=== PATIENT | male | born 1995 | race African-American/Black ===

== ENCOUNTER 2025-03-25 22:06 | Emergency (ER) | payer SELFPAY ==
[2025-03-25 22:07] VITALS: BMI 35.2
[2025-03-25 23:28] VITALS: BP 150/91; PULSE 83; RESP 17; TEMP 37.1; O2SAT 97
--- NOTE | 2025-03-25 23:42 | EDNOTE_ITS ---
ED Male Genitalurinary RME/HPI General Chief complaint: Urogenital-Male Stated complaint: DIFFICULTY URINATING Time Seen by Provider: 03/25/25 23:35 Arrival date/time: 03/25/25 22:06 29M with no significant PMH presents to ED with several days of dysuria and penile discharge. Patient took 3 days of a friend's Keflex, which helped, but symptoms returned after he stopped taking them. Limitations: no limitations Related Data Previous Rx's ?Medication ?Instructions ?Recorded doxycycline hyclate 100 mg tablet 100 mg PO BID 7 days #14 tabs 03/26/25 Allergies Allergy/AdvReac Type Severity Reaction Status Date / Time No Known Allergies Allergy Verified 03/25/25 22:09 Review of Systems Review of Systems Systems Reviewed: All systems reviewed, normal except as documented Genitourinary Genitourinary: Reports as per HPI, Reports dysuria and Reports penile discharge Past Medical History Social History SMOKING STATUS: Current some day smoker ED Exam General Limitations: Present no limitations General appearance: Present alert and in no apparent distress Head Head exam: Present atraumatic Neck Neck exam: Present normal inspection, full ROM and trachea midline Chest Chest inspection: Present normal inspection and symmetric chest wall rise Neurological Exam Neurological exam: Present alert and oriented X3 Psychiatric Psychiatric exam: Present normal affect and normal mood Skin Skin exam: Present warm, dry, intact and normal color Course Quality Measures none Orders Category Date Time Status Chlamydia/GC/TV - PCR Stat Lab 03/25/25 Received Drug Screen,Urine Stat Lab 03/26/25 00:06 Completed Urinalysis, C/S if Indicated Stat Lab 03/26/25 00:06 Completed cefTRIAXone [Rocephin] 1,000 mg Med 03/25/25 23:36 Discontinued Lidocaine 1% 20 ml [Xylocaine 1% 20 ML] 2.1 ml IM X1 Vital Signs Vital signs: Vital Signs Temperature 98.8 F 03/25/25 23:28 Pulse Rate 83 03/25/25 23:28 Respiratory Rate 17 03/25/25 23:28 Blood Pressure 150/91 H 03/25/25 23:28 Pulse Oximetry (%) 97 03/25/25 23:28 Oxygen Delivery Method Room Air 03/25/25 23:28 O2 at 97% on RA and WNLs Urogenital - Male MDM Narrative MDM Narrative:: 29M with no significant PMH presents to ED with several days of dysuria and penile discharge. Patient took 3 days of a friend's Keflex, which helped, but symptoms returned after he stopped taking them. Physical exam reveals well-appearing male. Patient is afebrile, calm, and alert. GC pending at time of DC. Patient would like to be treated empirically. UA unremarkable. Tox screen neg. Patient data External records reviewed:: None Clinical information provided by:: patient Social determinants that could affect healthcare access:: none Patient has the following chronic illnesses:: none How is presenting disease/condition affected by chronic disease/condition?: no chronic disease Evaluation data The following diagnostics were reviewed and interpreted by me:: lab results Lab and/or radiology exams considered but not ordered:: ordered Interpretation Summary: above Medications / Prescriptions Medications or Prescriptions considered but not ordered:: ordered Medication administrations:: Medication Administration History Discontinued Medications Ceftriaxone Sodium 1,000 mg/ (Lidocaine HCl 2.1 ml) 0 mg IM X1 ONE Stop: 03/25/25 23:37 Last Admin: 03/25/25 23:49 Dose: 1,000 mg Documented By: FELIBERTO above Consultations Consultation(s) initiated? (list below): No Diagnosis Urogenital Male Differential Diagnosis: urinary tract infection, priapism, urethritis, epididymitis, genital herpes simplex, prostatitis, acute retention of urine, inguinal hernia and other (male concern for STD) Most likely diagnosis given after review of the tests above:: male concern for STD Admission Indicated Admission indicated?: not indicated Admission Request Was there a request for admission?: No Disposition Plan Disposition Plan: Discharge Discharge Attestation Discharge Attestation: The patient and all family members were given an opportunity to ask questions and understood the discharge instructions. Discharge instructions specifically effects, indications for sooner follow up or return to the emergency department, and the expected course of current diagnosis. Patient condition: Stable Discharge Plan Plan Patient Disposition: HOME (Self Care) Discharge Disposition comment: Stable Prescriptions/Referrals Prescriptions/Med Rec: New doxycycline hyclate 100 mg tablet 100 mg PO BID 7 Days Qty: 14 0RF Referrals: No Primary/Family,Physician [Primary Care Provider] - In 1 week Problem List Clinical Impression: Concern about STD in male without diagnosis Patient/Caregiver Discharge Instructions Additional Instructions: Please follow-up with PCP within 24-48 hours and return immediately if symptoms worsen. Follow-up with patient portal or medical records to find out GC test results. Finish ABX. Print Language: Romanian Stand Alone Forms: Patient Portal Info Letter PA/BUSINESS DEVELOPMENT MANAGER Supervising Physician PA/BUSINESS DEVELOPMENT MANAGER Supervising Physician: Dr. Archer
[2025-03-25] MEDS: cefTRIAXone 1,000 MG, LIDOCAINE 1% 20 ML 2.1 ML IM (23:49)
[2025-03-26 00:17] LABS: Collection Type, Urine Clean Catch
[2025-03-26 00:24] LABS: Bilirubin,Urine Negative (Negative); Blood,Urine Negative (Negative); Clarity,Urine Clear (Clear/Hazy); Color,Urine Lt-Yellow (Lt Yel-Yel); Culture Indicated,Urine Not Indicated; Glucose, Urine Negative (Negative); Ketones,Urine Negative (Negative); Leukocyte Esterase,Urine Negative (Negative); Nitrite,Urine Negative (Negative); PH,Urine 6.0 (5.0-7.0); Protein,Urine Negative (Neg - Trace); RBC,Urine 2 /hpf (0-3); Specific Gravity,Urine 1.019 (1.001-1.035); Squamous Epithelial Cell,Urine < 1 /hpf (0-5); Urobilinogen,Urine Negative mg/dL (0.0-1.0); WBC,Urine 7 /hpf (0-5)
[2025-03-26 00:30] LABS: Amphetamine/Methamp Scrn,U Negative (Negative); Barbiturate Screen,Urine Negative (Negative); Benzodiazepines Screen,Urine Negative (Negative); Benzoylecgonine Screen, Ur Negative (Negative); Fentanyl Screen,Urine Negative (Negative); Opiate Screen,Urine Negative (Negative); THC Screen,Urine Negative (Negative)
[2025-03-26 10:10] LABS: Chlamydia trachomatis PCR Negative (Not Detect); Neisseria Gonorrhoeae DNA PCR Negative (Not Detect); Trichomonas Negative (Negative)
== END 2025-03-26 00:39 | disposition home or self-care (01) ==
PROVIDERS: Physician Assistant; Emergency Provider Emergency Medicine
DX: R30.0 Dysuria (principal); R36.9 Urethral discharge, unspecified; F17.200 Nicotine dependence, unspecified, uncomplicated
CPT/HCPCS: 80307; 81001; 87491; 87591; 87661; 96372; 99283; J0696; J3490